=== PATIENT | female | born 1965 | race Asian ===

== ENCOUNTER → 2016-09-03 | Outpatient (CLI) | payer BC ==
[2016-09-03 08:26] LABS: BASOPHILS % 0.7 % (0.0-2.0); LYMPHOCYTES % 33.5 % (20.0-50.0); MEAN CORPUSCULAR HEMOGLOBIN 30.9 pg (28.0-32.0); MEAN CORPUSCULAR VOLUME 90.6 fL (81.0-99.0); MONOCYTES % 9.4 % (2.0-8.0); NEUTROPHILS % 52.4 % (40.0-76.0); PLATELET 341 x1000/uL (130-400); RED BLOOD CELL COUNT 4.86 mill/uL (4.2-5.4)
[2016-09-03 08:41] LABS: CARBON DIOXIDE 29 mEq/L (21-32); CHLORIDE 103 mEq/L (98-107); HDL CHOLESTEROL 84 mg/dL (40-59); LDL CHOLESTEROL 123 mg/dL (5-100); TOTAL IRON BINDING CAPACITY 390 ug/dL (250-450)
== END | disposition home or self-care (01) ==
LOC: LAB 07:45
PROVIDERS: ATTEND Pathology Anatomic Pathology & Clinical Pathology
DX: I10 Essential (primary) hypertension (principal); D50.9 Iron deficiency anemia, unspecified; E78.5 Hyperlipidemia, unspecified
CPT/HCPCS: 36415; 80053; 80061; 82306; 82728; 83036; 83540; 83550; 85025

== ENCOUNTER → 2017-03-11 | Outpatient (CLI) | payer BC ==
[2017-03-11 09:20] LABS: CARBON DIOXIDE 27 mEq/L (21-32); CHLORIDE 103 mEq/L (98-107)
[2017-03-11 09:21] LABS: HDL CHOLESTEROL 78 mg/dL (40-59); LDL CHOLESTEROL 140 mg/dL (5-100)
== END | disposition home or self-care (01) ==
LOC: LAB 07:20
PROVIDERS: ATTEND Internal Medicine
DX: E78.00 Pure hypercholesterolemia, unspecified (principal)
CPT/HCPCS: 36415; 80053; 80061

== ENCOUNTER → 2017-04-08 | Outpatient (CLI) | payer BC ==
[2017-04-08 09:03] LABS: CARBON DIOXIDE 29 mEq/L (21-32); CHLORIDE 106 mEq/L (98-107)
== END | disposition home or self-care (01) ==
LOC: LAB 07:56
PROVIDERS: ATTEND Internal Medicine
DX: E87.6 Hypokalemia (principal)
CPT/HCPCS: 36415; 80048; 83735

== ENCOUNTER → 2017-11-04 | Outpatient (CLI) | payer BC ==
[2017-11-04 08:31] LABS: CHLORIDE 103 mEq/L (98-107)
[2017-11-04 08:39] LABS: LDL CHOLESTEROL 138 mg/dL (5-100)
[2017-11-04 08:41] LABS: HDL CHOLESTEROL 68 mg/dL (40-59)
== END | disposition home or self-care (01) ==
LOC: LAB 07:09
PROVIDERS: ATTEND Internal Medicine
DX: I10 Essential (primary) hypertension (principal); E78.00 Pure hypercholesterolemia, unspecified
CPT/HCPCS: 36415; 80053; 80061

== ENCOUNTER → 2018-04-10 | Outpatient (CLI) | payer BC ==
[2018-04-10 09:50] LABS: CHLORIDE 104 mEq/L (98-107)
[2018-04-10 10:00] LABS: LDL CHOLESTEROL 135 mg/dL (5-100)
[2018-04-10 10:01] LABS: HDL CHOLESTEROL 68 mg/dL (40-59)
== END | disposition home or self-care (01) ==
LOC: LAB 08:24
PROVIDERS: ATTEND Internal Medicine
DX: I10 Essential (primary) hypertension (principal); E78.5 Hyperlipidemia, unspecified
CPT/HCPCS: 36415; 80061

== ENCOUNTER → 2018-06-23 | Outpatient (CLI) | payer BC ==
[2018-06-23 09:47] LABS: CHLORIDE 107 mEq/L (98-107)
== END | disposition home or self-care (01) ==
LOC: LAB 09:11
PROVIDERS: ATTEND Internal Medicine
DX: E87.6 Hypokalemia (principal)
CPT/HCPCS: 36415; 80048; 83735

== ENCOUNTER → 2018-07-13 | Outpatient (CLI) | payer BC ==
[2018-07-13 10:02] LABS: CHLORIDE 108 mEq/L (98-107)
[2018-07-13 10:10] LABS: LDL CHOLESTEROL 135 mg/dL (5-100)
[2018-07-13 10:11] LABS: HDL CHOLESTEROL 62 mg/dL (40-59)
== END | disposition home or self-care (01) ==
LOC: LAB 09:01
PROVIDERS: ATTEND Internal Medicine
DX: E78.5 Hyperlipidemia, unspecified (principal); I10 Essential (primary) hypertension
CPT/HCPCS: 36415; 80061; 83036

== ENCOUNTER 2018-10-15 12:25 | Emergency (ER) | payer BC ==
[~2018-10-15] VITALS: Ht 152.4 cm; Wt 63.0 kg
[2018-10-15 12:44] VITALS: BP 169/86
[2018-10-15] MEDS ORDERED: ACETAMINOPHEN 325MG TABLET PO ONE (13:00)
== END 2018-10-15 15:03 | disposition home or self-care (01) ==
LOC: ER 12:25
DX: S20.212A Contusion of left front wall of thorax, initial encounter (principal); R06.7 Sneezing; I10 Essential (primary) hypertension; V89.2XXA Person injured in unspecified motor-vehicle accident, traffic, initial encounter; Y93.89 Activity, other specified; Y92.89 Other specified places as the place of occurrence of the external cause; Y99.8 Other external cause status
CPT/HCPCS: 71045; 93005; 99283; 99284

== ENCOUNTER → 2019-03-16 | Outpatient (CLI) | payer BC ==
[2019-03-16 09:04] LABS: CHLORIDE 109 mEq/L (98-107)
[2019-03-16 09:12] LABS: LDL CHOLESTEROL 162 mg/dL (5-100)
[2019-03-16 09:16] LABS: HDL CHOLESTEROL 63 mg/dL (40-59)
== END | disposition home or self-care (01) ==
LOC: LAB 07:32
PROVIDERS: ATTEND Internal Medicine
DX: I10 Essential (primary) hypertension (principal); E78.5 Hyperlipidemia, unspecified
CPT/HCPCS: 36415; 80061

== ENCOUNTER → 2019-05-31 | Outpatient (CLI) | payer BC | END | disposition home or self-care (01) | LOC: MAMMO 07:53 | PROVIDERS: ATTEND Internal Medicine | DX: Z12.31 Encounter for screening mammogram for malignant neoplasm of breast (principal); N64.89 Other specified disorders of breast | CPT/HCPCS: 77067 ==

== ENCOUNTER → 2019-10-11 | Outpatient (CLI) | payer BC ==
[2019-10-11 08:53] LABS: CHLORIDE 107 mEq/L (98-107)
[2019-10-11 09:00] LABS: LDL CHOLESTEROL 150 mg/dL (5-100)
[2019-10-11 09:01] LABS: HDL CHOLESTEROL 67 mg/dL (40-59)
== END | disposition home or self-care (01) ==
LOC: LAB 08:00
PROVIDERS: ATTEND Internal Medicine
DX: E78.5 Hyperlipidemia, unspecified (principal); I10 Essential (primary) hypertension
CPT/HCPCS: 36415; 80053; 80061; 83036

== ENCOUNTER → 2021-05-01 | Outpatient (CLI) | payer BC | END | disposition home or self-care (01) | LOC: MAMMO 07:33 | PROVIDERS: ATTEND Internal Medicine | DX: Z12.31 Encounter for screening mammogram for malignant neoplasm of breast (principal) | CPT/HCPCS: 77063; 77067 ==

== ENCOUNTER → 2021-10-22 | Outpatient (CLI) | payer BC ==
[2021-10-22 08:17] LABS: BASOPHILS % 0.7 % (0.0-2.0); EOSINOPHILS % 3.2 % (0.0-5.0); HEMATOCRIT. 41.8 % (36.0-48.0); HEMOGLOBIN. 14.3 g/dL (12.0-16.0); LYMPHOCYTES % 32.9 % (20.0-50.0); MEAN CORPUSCULAR HEMOGLOBIN 30.7 pg (28.0-32.0); MEAN CORPUSCULAR VOLUME 90.1 fL (81.0-99.0); MEAN PLATELET VOLUME 7.3 fl (7.4-10.4); NEUTROPHILS % 53.2 % (40.0-76.0); PLATELET 385 x1000/uL (130-400); RED BLOOD CELL COUNT 4.64 mill/uL (4.2-5.4); RED CELL DISTRIBUTION WIDTH 12.9 % (11.6-14.6)
[2021-10-22 08:31] LABS: CHLORIDE 105 mEq/L (98-107)
== END | disposition home or self-care (01) ==
LOC: LAB 07:57
PROVIDERS: ATTEND Internal Medicine
DX: I10 Essential (primary) hypertension (principal)
CPT/HCPCS: 36415; 80053; 85025

== ENCOUNTER → 2022-03-08 | Outpatient (CLI) | payer BC ==
[2022-03-08 09:03] LABS: CLARITY URINE CLEAR (CLEAR); COLOR URINE YELLOW (YELLOW); KETONES URINE 1+ (NEGATIVE); LEUKOCYTE ESTERASE URINE TRACE (NEGATIVE); NITRITE URINE NEGATIVE (NEGATIVE); OCCULT BLOOD URINE NEGATIVE (NEGATIVE); PH URINE 6.5 (4.5-8.0); PROTEIN URINE 1+ (NEGATIVE); SPECIFIC GRAVITY URINE 1.011 (1.005-1.030); UROBILINOGEN URINE 0.2 E.U./dL (0.2-1.0)
[2022-03-08 09:26] LABS: BASOPHILS % 0.7 % (0.0-2.0); EOSINOPHILS % 2.5 % (0.0-5.0); HEMATOCRIT. 41.9 % (36.0-48.0); HEMOGLOBIN. 14.3 g/dL (12.0-16.0); LYMPHOCYTES % 26.7 % (20.0-50.0); MEAN CORPUSCULAR HEMOGLOBIN 31.1 pg (28.0-32.0); MEAN CORPUSCULAR VOLUME 91.2 fL (81.0-99.0); MONOCYTES % 8.5 % (2.0-8.0); NEUTROPHILS % 61.6 % (40.0-76.0); PLATELET 421 x1000/uL (130-400); RED BLOOD CELL COUNT 4.59 mill/uL (4.2-5.4); RED CELL DISTRIBUTION WIDTH 13.2 % (11.6-14.6)
[2022-03-08 09:28] LABS: CHLORIDE 103 mEq/L (98-107)
[2022-03-08 09:52] LABS: HDL CHOLESTEROL 57 mg/dL (40-59); LDL CHOLESTEROL 99 mg/dL (5-100)
== END | disposition home or self-care (01) ==
LOC: LAB 03-05 07:41
PROVIDERS: ATTEND Internal Medicine
DX: Z13.1 Encounter for screening for diabetes mellitus (principal); E78.5 Hyperlipidemia, unspecified
CPT/HCPCS: 36415; 80053; 80061; 81003; 83036; 84443; 85025

== ENCOUNTER → 2022-04-15 | Outpatient (CLI) | payer BC | END | disposition home or self-care (01) | LOC: RAD 07:42 | PROVIDERS: ATTEND Internal Medicine | DX: R76.11 Nonspecific reaction to tuberculin skin test without active tuberculosis (principal) | CPT/HCPCS: 71046 ==

== ENCOUNTER → 2022-06-04 | Outpatient (CLI) | payer BC ==
[2022-06-04 09:13] LABS: CHLORIDE 107 mEq/L (98-107)
== END | disposition home or self-care (01) ==
LOC: LAB 07:46
PROVIDERS: ATTEND Internal Medicine
DX: I10 Essential (primary) hypertension (principal); E87.6 Hypokalemia
CPT/HCPCS: 36415; 80053; 83735

== ENCOUNTER → 2022-07-22 | Outpatient (CLI) | payer BC | END | disposition home or self-care (01) | LOC: MAMMO 07:59 | PROVIDERS: ATTEND Internal Medicine | DX: Z12.31 Encounter for screening mammogram for malignant neoplasm of breast (principal) | CPT/HCPCS: 77067 ==

== ENCOUNTER → 2022-10-01 | Outpatient (CLI) | payer BC ==
[2022-10-01 08:30] LABS: CHLORIDE 105 mEq/L (98-107)
[2022-10-01 08:41] LABS: HDL CHOLESTEROL 56 mg/dL (40-59); LDL CHOLESTEROL 75 mg/dL (5-100)
[2022-10-02 14:11] LABS: *CREATININE RANDOM URINE 28.9 mg/dL (Not Estab.); MICROALBUMIN RANDOM URINE 29.1 ug/mL (Not Estab.)
== END | disposition home or self-care (01) ==
LOC: LAB 07:36
PROVIDERS: ATTEND Internal Medicine
DX: I10 Essential (primary) hypertension (principal); R73.03 Prediabetes; E78.5 Hyperlipidemia, unspecified
CPT/HCPCS: 36415; 80053; 80061; 82043; 82570; 83036

== ENCOUNTER → 2022-12-28 | Outpatient (CLI) | payer BC ==
[2022-12-28 09:12] LABS: CLARITY URINE CLEAR (CLEAR); COLOR URINE YELLOW (YELLOW); GLUCOSE URINE NEGATIVE (NEGATIVE); KETONES URINE NEGATIVE (NEGATIVE); LEUKOCYTE ESTERASE URINE TRACE (NEGATIVE); NITRITE URINE NEGATIVE (NEGATIVE); OCCULT BLOOD URINE NEGATIVE (NEGATIVE); PH URINE 5.5 (4.5-8.0); PROTEIN URINE 1+ (NEGATIVE); UROBILINOGEN URINE 0.2 E.U./dL (0.2-1.0)
[2022-12-28 09:43] LABS: MUCUS URINE TRACE /lpf (< = 2+); SQUAMOUS EPITHELIAL CELL URINE RARE /lpf (RARE/1+)
[2022-12-28 09:44] LABS: BACTERIA URINE TRACE
[2022-12-28 09:45] LABS: RBC URINE 0-2 /hpf (0-2)
[2022-12-28 10:34] LABS: CHLORIDE 109 mEq/L (98-107); INDEX HEMOLYSI 1 (1-3); INDEX ICTERIC 1 (1-4); INDEX LIPEMIC 1 (1-3); POTASSIUM 3.4 mEq/L (3.5-5.1); SODIUM 141 mEq/L (136-145)
[2022-12-28 10:41] LABS: ALANINE AMINOTRANSFERASE 36 IU/L (13-61); ALBUMIN 3.4 g/dL (3.4-5.0); ASPARTATE AMINOTRANSFERASE 22 IU/L (15-37); BILIRUBIN TOTAL 0.6 mg/dL (0.1-1.0); CALCIUM 8.1 mg/dL (8.5-10.1); CARBON DIOXIDE 26 mEq/L (21-32); CREATININE 0.6 mg/dL (0.6-1.3); GLUCOSE 122 mg/dL (70-105); UREA NITROGEN BLOOD 13 mg/dL (7-21)
[2022-12-29 08:09] LABS: *CREATININE RANDOM URINE 132.8 mg/dL (Not Estab.); MICROALBUMIN RANDOM URINE 206.7 ug/mL (Not Estab.)
== END | disposition home or self-care (01) ==
LOC: LAB 08:44
PROVIDERS: ATTEND Internal Medicine
DX: I10 Essential (primary) hypertension (principal); R80.9 Proteinuria, unspecified
CPT/HCPCS: 36415; 80053; 81003; 82043; 82570

== ENCOUNTER → 2023-02-03 | Outpatient (CLI) | payer BC ==
[2023-02-03 10:49] LABS: CHLORIDE 107 mEq/L (98-107); INDEX HEMOLYSI 1 (1-3); INDEX ICTERIC 1 (1-4); INDEX LIPEMIC 1 (1-3); POTASSIUM 3.7 mEq/L (3.5-5.1); SODIUM 139 mEq/L (136-145)
[2023-02-03 11:31] LABS: ALANINE AMINOTRANSFERASE 29 IU/L (13-61); ALBUMIN 3.6 g/dL (3.4-5.0); ASPARTATE AMINOTRANSFERASE 21 IU/L (15-37); BILIRUBIN TOTAL 0.7 mg/dL (0.1-1.0); CALCIUM 8.5 mg/dL (8.5-10.1); CREATININE 0.7 mg/dL (0.6-1.3); GLUCOSE 138 mg/dL (70-105); PHOSPHORUS 2.8 mg/dL (2.5-4.9); PROTEIN TOTAL 8.1 g/dL (6.0-8.3); UREA NITROGEN BLOOD 10 mg/dL (7-21)
[2023-02-03 14:35] LABS: CARBON DIOXIDE 23 mEq/L (21-32)
[2023-02-03 14:53] LABS: CREATININE URINE 24 HR 924.5 mg/24hr (800-2000)
== END | disposition home or self-care (01) ==
LOC: LAB 09:50
PROVIDERS: ATTEND Internal Medicine
DX: E83.51 Hypocalcemia (principal); R80.1 Persistent proteinuria, unspecified
CPT/HCPCS: 36415; 80053; 82306; 82330; 82340; 82570; 83735; 83970; 84100; 84156

== ENCOUNTER → 2023-08-09 | Outpatient (CLI) | payer BC | END | disposition home or self-care (01) | LOC: MAMMO 08:28 | PROVIDERS: ATTEND Internal Medicine | DX: Z12.31 Encounter for screening mammogram for malignant neoplasm of breast (principal) | CPT/HCPCS: 77063; 77067 ==

== ENCOUNTER → 2023-08-19 | Outpatient (CLI) | payer BC | END | disposition home or self-care (01) | LOC: MAMMO 07:36 | PROVIDERS: ATTEND Internal Medicine | DX: R92.8 Other abnormal and inconclusive findings on diagnostic imaging of breast (principal) | CPT/HCPCS: 76641; 77065 ==

== ENCOUNTER → 2023-11-18 | Outpatient (CLI) | payer BC ==
[2023-11-18 08:11] LABS: CHLORIDE 102 mEq/L (98-107); POTASSIUM 3.7 mEq/L (3.5-5.1); SODIUM 138 mEq/L (136-145)
[2023-11-18 08:13] LABS: CALCIUM 9.5 mg/dL (8.7-10.4); CARBON DIOXIDE 28 mEq/L (21-32)
[2023-11-18 08:18] LABS: CREATININE 0.7 mg/dL (0.6-1.0); GLUCOSE 147 mg/dL (70-105)
[2023-11-18 08:19] LABS: LDL CHOLESTEROL 103 mg/dL (5-100); TRIGLYCERIDE 131 mg/dL (0-150); UREA NITROGEN BLOOD 9 mg/dL (9-23)
[2023-11-18 08:20] LABS: ALANINE AMINOTRANSFERASE 37 IU/L (10-49); ALBUMIN 4.9 g/dL (3.2-4.8); ASPARTATE AMINOTRANSFERASE 31 IU/L (<34); CHOLESTEROL 166 mg/dL (<200); HDL CHOLESTEROL 49 mg/dL (>65)
[2023-11-18 08:21] LABS: BILIRUBIN TOTAL 0.7 mg/dL (0.1-1.0); PROTEIN TOTAL 8.1 g/dL (6.0-8.3)
[2023-11-19 09:08] LABS: *CREATININE RANDOM URINE 57.9 mg/dL (Not Estab.); MICROALBUMIN RANDOM URINE 50.5 ug/mL (Not Estab.)
== END | disposition home or self-care (01) ==
LOC: LAB 07:33
PROVIDERS: ATTEND Internal Medicine
DX: E78.5 Hyperlipidemia, unspecified (principal); R80.9 Proteinuria, unspecified
CPT/HCPCS: 36415; 80053; 80061; 82043; 82570

== ENCOUNTER → 2024-06-21 | Day surgery (SDC) | payer BC ==
[2024-06-21 08:10] LABS: BASOPHILS % 0.7 % (0.0-2.0); EOSINOPHILS % 2.5 % (0.0-5.0); HEMATOCRIT. 41.9 % (36.0-48.0); HEMOGLOBIN. 14.2 g/dL (12.0-16.0); LYMPHOCYTES % 30.8 % (20.0-50.0); MEAN CORPUSCULAR HEMOGLOBIN 30.5 pg (28.0-32.0); MEAN CORPUSCULAR HGB CONC 33.9 g/dL (31.0-37.0); MEAN CORPUSCULAR VOLUME 89.9 fL (81.0-99.0); MEAN PLATELET VOLUME 7.8 fl (7.4-10.4); MONOCYTES % 8.7 % (2.0-8.0); NEUTROPHILS % 57.3 % (40.0-76.0); PLATELET 363 x1000/uL (130-400); RED BLOOD CELL COUNT 4.65 mill/uL (4.2-5.4); RED CELL DISTRIBUTION WIDTH 13.1 % (11.6-14.6); WHITE BLOOD COUNT 9.3 x1000/uL (4.5-11.0)
[2024-06-21 08:12] LABS: CLARITY URINE CLEAR (CLEAR); COLOR URINE YELLOW (YELLOW); GLUCOSE URINE NEGATIVE (NEGATIVE); KETONES URINE NEGATIVE (NEGATIVE); LEUKOCYTE ESTERASE URINE TRACE (NEGATIVE); NITRITE URINE NEGATIVE (NEGATIVE); OCCULT BLOOD URINE NEGATIVE (NEGATIVE); PH URINE 6.5 (4.5-8.0); PROTEIN URINE NEGATIVE (NEGATIVE); SPECIFIC GRAVITY URINE 1.006 (1.005-1.030); UROBILINOGEN URINE 0.2 E.U./dL (0.2-1.0)
[2024-06-21 08:26] LABS: CHLORIDE 101 mEq/L (98-107); POTASSIUM 3.5 mEq/L (3.5-5.1); SODIUM 139 mEq/L (136-145)
[2024-06-21 08:27] LABS: CALCIUM 9.4 mg/dL (8.7-10.4); CARBON DIOXIDE 29 mEq/L (21-32)
[2024-06-21 08:32] LABS: CREATININE 0.6 mg/dL (0.6-1.0); GLUCOSE 111 mg/dL (70-105); TRIGLYCERIDE 163 mg/dL (0-150); UREA NITROGEN BLOOD 9 mg/dL (9-23)
[2024-06-21 08:33] LABS: ALANINE AMINOTRANSFERASE 36 IU/L (10-49); LDL CHOLESTEROL 77 mg/dL (5-100)
[2024-06-21 08:34] LABS: ALBUMIN 4.4 g/dL (3.2-4.8); ASPARTATE AMINOTRANSFERASE 24 IU/L (<34); BILIRUBIN TOTAL 0.7 mg/dL (0.1-1.0); CHOLESTEROL 144 mg/dL (<200); HDL CHOLESTEROL 40 mg/dL (>65)
[2024-06-21 08:56] LABS: SQUAMOUS EPITHELIAL CELL URINE RARE /lpf (RARE/1+)
[2024-06-21 08:57] LABS: BACTERIA URINE FEW; RBC URINE 0-2 /hpf (0-2)
[2024-06-23 08:10] LABS: *CREATININE RANDOM URINE 32.6 mg/dL (Not Estab.); MICROALBUMIN RANDOM URINE 49.7 ug/mL (Not Estab.)
== END | disposition home or self-care (01) ==
LOC: LAB 07:12
PROVIDERS: ATTEND Internal Medicine
DX: I10 Essential (primary) hypertension (principal); E78.5 Hyperlipidemia, unspecified; R73.03 Prediabetes; R80.9 Proteinuria, unspecified
CPT/HCPCS: 36415; 80053; 80061; 81001; 81003; 82043; 82570; 83036; 85025

== ENCOUNTER → 2024-10-18 | Outpatient (CLI) | payer BC | END | disposition home or self-care (01) | LOC: MAMMO 07:36 | PROVIDERS: ATTEND Internal Medicine | DX: Z12.31 Encounter for screening mammogram for malignant neoplasm of breast (principal); R92.323 Mammographic fibroglandular density, bilateral breasts; R92.1 Mammographic calcification found on diagnostic imaging of breast | CPT/HCPCS: 77063; 77067 ==

== ENCOUNTER → 2025-01-30 | Outpatient (CLI) | payer BC ==
[2025-01-30 09:03] LABS: BASOPHILS % 1.3 % (0.0-2.0); EOSINOPHILS % 3.1 % (0.0-5.0); HEMATOCRIT. 41.3 % (36.0-48.0); HEMOGLOBIN. 13.9 g/dL (12.0-16.0); LYMPHOCYTES % 30.6 % (20.0-50.0); MEAN PLATELET VOLUME 8.0 fl (7.4-10.4); MONOCYTES % 8.8 % (2.0-8.0); NEUTROPHILS % 56.2 % (40.0-76.0); PLATELET 379 x1000/uL (130-400); RED BLOOD CELL COUNT 4.55 mill/uL (4.2-5.4); RED CELL DISTRIBUTION WIDTH 13.0 % (11.6-14.6)
[2025-01-30 09:17] LABS: CREATININE 0.7 mg/dL (0.6-1.0)
[2025-01-30 09:18] LABS: LDL CHOLESTEROL 106 mg/dL (5-100); TRIGLYCERIDE 79 mg/dL (0-150); UREA NITROGEN BLOOD 8 mg/dL (9-23)
[2025-01-30 09:19] LABS: ASPARTATE AMINOTRANSFERASE 23 IU/L (<34)
[2025-01-30 09:20] LABS: BILIRUBIN TOTAL 0.5 mg/dL (0.1-1.0); PROTEIN TOTAL 8.2 g/dL (6.0-8.3)
[2025-01-30 10:07] LABS: CLARITY URINE CLEAR (CLEAR); COLOR URINE YELLOW (YELLOW); GLUCOSE URINE NEGATIVE (NEGATIVE); KETONES URINE NEGATIVE (NEGATIVE); LEUKOCYTE ESTERASE URINE TRACE (NEGATIVE); NITRITE URINE NEGATIVE (NEGATIVE); OCCULT BLOOD URINE NEGATIVE (NEGATIVE); PH URINE 6.5 (4.5-8.0); PROTEIN URINE TRACE (NEGATIVE); SPECIFIC GRAVITY URINE 1.007 (1.005-1.030); UROBILINOGEN URINE 0.2 E.U./dL (0.2-1.0)
[2025-01-30 11:19] LABS: RBC URINE 0-2 /hpf (0-2); SQUAMOUS EPITHELIAL CELL URINE FEW /lpf (RARE/1+); WBC URINE 0-2 /hpf (0-2)
[2025-01-30 11:20] LABS: BACTERIA URINE NONE SEEN
== END | disposition home or self-care (01) ==
LOC: LAB 08:08
PROVIDERS: ATTEND Internal Medicine
DX: I10 Essential (primary) hypertension (principal); E78.5 Hyperlipidemia, unspecified; R73.03 Prediabetes
CPT/HCPCS: 80053; 80061; 81003; 83036; 85025